=== PATIENT | female | born 1995 | race Caucasian/White ===

== ENCOUNTER 2022-12-11 18:40 | Emergency (ER) | payer SELFPAY ==
--- NOTE | 2022-12-11 18:48 | ED_ITS ---
HPI - Nausea/Vomiting/Diarrhea General Chief complaint: Nausea/Vomiting/Diarrhea Stated complaint: vomiting,etoh Related Data Allergies Allergy/AdvReac Type Severity Reaction Status Date / Time sulfamethoxazole Allergy Hives Verified 12/11/22 18:50 [From Bactrim] trimethoprim [From Bactrim] Allergy Hives Verified 12/11/22 18:50 PMFSH Social History Social History Advance Directives: No Advance Directives Information Provided: No Physical Exam Vital Signs: Vital Signs: Last Vital Signs Temp 96.9 F 12/11/22 18:51 Pulse 123 H 12/11/22 18:51 Resp 18 12/11/22 18:51 BP 106/52 L 12/11/22 18:51 Pulse Ox 98 12/11/22 18:51 O2 Del Method Room Air 12/11/22 18:51 BMI result Body Mass Index 21.3 Course Course Course Narrative: RME - 27 yo female presents to the ER for evaluation of nausea and vomiting after drinking heavy amounts of alcohol today, taking an addeerall and then doing a dab of marijuana. has not eating much today. has vomited several times in the last hour and now is just dry heaving. no blood in the vomit. arrives to triage slumped over a large vomit bucket. Plan: labs, ETOH level, utox, antiemetics, IVF Reevaluation(s) Reevaluation #1: patient eloped prior to treatment Medical Decision Making Lab Data 12/11/22 19:07 12/11/22 19:07 Labs: Lab Results 12/11/22 12/11/22 Range/Units 19:07 19:07 WBC 10.5 (4.8-10.8) X10*3/uL RBC 4.43 (4.20-5.50) X10*6/uL Hgb 13.7 (12.0-16.0) g/dl Hct 41.8 (37.0-47.0) % MCV 94.4 (80.0-98.0) fL MCH 30.9 (27.0-33.0) pg MCHC 32.8 (31.0-35.0) g/dl RDW 12.3 (11.0-16.0) % Plt Count 162 (160-400) X10*3/uL MPV 10.2 (9.4-12.3) fL Immature Gran % (Auto) 0.3 (0.0-0.4) % Neut % (Auto) 60.6 (45-73) % Lymph % (Auto) 31.9 (20-40) % [place] % (Auto) 5.6 (2-11) % Eos % (Auto) 1.0 (0-4) % Baso % (Auto) 0.6 (0-2) % Lymph # (Auto) 3.3 (1.2-4.9) X10*3/uL [place] # (Auto) 0.6 (0.1-1.2) X10*3/uL Eos # (Auto) 0.1 (0.0-0.4) X10*3/uL Baso # (Auto) 0.1 (0.0-0.2) X10*3/uL Abs Immat Gran (auto) 0.03 (0.00-0.03) X10*3/uL Absolute Neuts (auto) 6.4 (2.0-8.3) x10*3/uL Absolute Nucleated RBC 0.000 (0.0-0.012) X10*3/uL Nucleated RBC % (auto) 0.0 (0.0-0.2) /100WBC Sodium 141 (135-145) mmol/L Potassium 4.6 (3.3-5.1) mmol/L Chloride 107 (96-108) mmol/L Carbon Dioxide 21 L (22-29) mmol/L Anion Gap 18 (12-20) BUN 7 L (9-16) mg/dL Creatinine 0.78 (0.5-1.4) mg/dL Estim Creat Clear Calc 91.2 Estimated GFR > 60 Random Glucose 144 H (60-115) mg/dL Calcium 9.3 (8.4-10.2) mg/dL Magnesium 2.0 (1.6-2.6) mg/dL Total Bilirubin 0.3 (0.0-1.0) mg/dL Direct Bilirubin 0.1 (0.0-0.5) mg/dL AST 18 (5-31) U/L ALT 12 (0-31) U/L Alkaline Phosphatase 61 (39-117) U/L Total Protein 7.3 (6.5-8.0) g/dL Albumin 4.5 (3.5-5.0) g/dL Lipase 12 (8-78) U/L Ethyl Alcohol 128 mg/dL Discharge Plan Discharge Clinical Impression: Vomiting Patient Disposition: Elopement Interventions: ED Discharge Assessment Last Done: 12/11/22 23:15 Discharge Date/Time: 12/11/22 23:15
[2022-12-11 18:51] VITALS: BP 106/52; PULSE 123; RESP 18; TEMP 36.1; O2SAT 98; BMI 21.3
[2022-12-11 19:12] LABS: Basophils Absolute Auto 0.1 X10*3/uL (0.0-0.2); Basophils Percent Auto 0.6 % (0-2); Eosinophils Absolute Auto 0.1 X10*3/uL (0.0-0.4); Hematocrit 41.8 % (37.0-47.0); Hemoglobin 13.7 g/dl (12.0-16.0); Imm Gran Abs Auto 0.03 X10*3/uL (0.00-0.03); Imm Gran Pct Auto 0.3 % (0.0-0.4); Lymphocytes Absolute Auto 3.3 X10*3/uL (1.2-4.9); Lymphocytes Percent Auto 31.9 % (20-40); MANUAL DIFF FLAG NO; Mean Corpuscular HGB Conc 32.8 g/dl (31.0-35.0); Mean Corpuscular Hemoglobin 30.9 pg (27.0-33.0); Mean Corpuscular Volume 94.4 fL (80.0-98.0); Mean Platelet Volume 10.2 fL (9.4-12.3); Monocytes Absolute Auto 0.6 X10*3/uL (0.1-1.2); Monocytes Percent Auto 5.6 % (2-11); Neutrophils Absolute Auto 6.4 x10*3/uL (2.0-8.3); Neutrophils Percent Auto 60.6 % (45-73); Platelet Count 162 X10*3/uL (160-400); Red Blood Count 4.43 X10*6/uL (4.20-5.50); Red Cell Distribution Width 12.3 % (11.0-16.0); White Blood Count 10.5 X10*3/uL (4.8-10.8)
[2022-12-11 19:28] LABS: Alanine Aminotransferase 12 U/L (0-31); Albumin Level 4.5 g/dL (3.5-5.0); Alkaline Phosphatase 61 U/L (39-117); Anion Gap 18 (12-20); Aspartate Amino Transferase 18 U/L (5-31); Bilirubin Direct 0.1 mg/dL (0.0-0.5); Bilirubin Total 0.3 mg/dL (0.0-1.0); Blood Urea Nitrogen 7 mg/dL (9-16); Calcium 9.3 mg/dL (8.4-10.2); Carbon Dioxide 21 mmol/L (22-29); Chloride 107 mmol/L (96-108); Creatinine Clr Calc Pharmacy 91.2; Estimated Glomerular Filt Rate > 60; Ethanol 128 mg/dL; Glucose Random 144 mg/dL (60-115); Lipase 12 U/L (8-78); Potassium 4.6 mmol/L (3.3-5.1); Sodium 141 mmol/L (135-145); Total Protein 7.3 g/dL (6.5-8.0)
== END 2022-12-11 23:15 | disposition left against medical advice (07) ==
LOC: HO.ED 12-12 00:34
PROVIDERS: Physician Assistant; Emergency Provider Emergency Medicine
DX: R11.2 Nausea with vomiting, unspecified (principal); F10.90 Alcohol use, unspecified, uncomplicated; Y90.6 Blood alcohol level of 120-199 mg/100 ml; Z79.899 Other long term (current) drug therapy
CPT/HCPCS: 36415; 80048; 80076; 80307; 83690; 83735; 85025; 99282; 99283

== ENCOUNTER 2025-05-04 01:10 | Emergency (ER) | payer BC, SELFPAY ==
--- NOTE | ~2025-05-04 | XR_ITS ---
CLINICAL HISTORY: closed in car door 3 view left hand Comparison: None provided Findings: No fractures or dislocations. No arthritic changes. No erosions. No radiopaque foreign body. IMPRESSION: 1. 4th finger nail is partially absent. 2. Generalized soft tissue swelling. Otherwise no acute findings. This document has been electronically signed by: Quintin Gonsalez MD on 05/04/2025 02:19:32
[2025-05-04 01:12] VITALS: BP 134/87; PULSE 120; RESP 20; TEMP 36.7; O2SAT 97; BMI 33.3
--- OUTSIDE RECORDS SUMMARY | 2025-05-04 02:26 | XMS_ITS | Encounter Summary ---
Author Organization [facility] Address [address] [place] [address] [place] [phone] Phone Care Team Providers Care Nursing Assistant Name Role Phone Effie Sam MD Primary Care Provider Asia Goodman NP Primary Care Provider [phone] Pcp, Unknown Primary Care Provider Unavailabl e Encounter Details Date Type Department Care Team (Late st Contact Info) Description 12/13/2017 Procedure Pass [address] [place] [address] Social History Tobacco Use Types Packs/Day Years Used Date Smoking Tobacco: Every Day Cigarettes 1 2 Smokeless Tobacco: Never Alcohol Use Standard Drinks/Week Comments No 0 (1 standard drink = 0.6 oz pur e alcohol) Comments Unknown Sex and Gender Information Value Date Recorded Sex Assigned at Female 12/09/2017 5:00 PM EDT Legal Sex Female 8:49 PM EDT Gender Identity Female 12/09/2017 5:00 PM EDT Sexual Orientation Straight 12/16/2017 10 :31 PM EDT documented as of this encounter Last Filed Vital Signs Vital Sign Reading Time Taken Comments Blood Pressure - - Pulse - - Temperature - - Respiratory Rate - - Oxygen Saturation - - Inhaled Oxygen Concentration - - Weight 49.9 kg (110 lb) 12/13/2017 1:52 PM EDT Height 160 cm (5' 3 ) 12/13/2017 1:52 PM EDT Body Mass Index 19.49 12/13/2017 1:52 PM EDT documented in this encounter Plan of Treatment Not on file documented as of this encounter Visit Diagnoses Not on filedocumented in this encounter Additional Health Concerns Infection Onset Date Last Indicated Resolved Time CoV-Risk 10/17/2023 10/17/2023 10/28/2023 1:22 AM EDT CoV-Risk 08/13/2024 08/13/2024 08/24/2024 1:21 AM EST documented as of this encounter Care Teams Nursing Assistant Relationship Specialty Start Date End Date Effie Sam MD [address] [place] [address] PCP - General Pediatrics 12/02/17 02/28/21 Asia Goodman NP [address] [place] [id number] PCP - General Family Medicine 03/01/21 08/12/24 Pcp, Unknown PCP - General 08/13/24 documented as of this encounter Additional Source Comments The information contained in this document represents components of the legal health record. It is not the complete legal health record.[facility]
--- OUTSIDE RECORDS SUMMARY | 2025-05-04 02:26 | XMS_ITS | Encounter Summary ---
Author Organization [facility] Address [address] [place] [address] [place] [phone] Phone Care Team Providers Care Bootmaker Hand Name Role Phone Cesar Hunt MD Primary Care Provider [phone] Effie Sam MD Primary Care Provider Asia Goodman NP Primary Care Provider [phone]- [phone] Pcp, Unknown Primary Care Provider Unavailabl e Encounter Details Date Type Department Care Team (Late st Contact Info) Description 08/18/2017 Ancillary Orders [facility], X-Ray - [address] [place] [address] Tierra Milner MD [address] [place] [address], [facility] [address] [place] [address] [email or web address] Cough Social History Tobacco Use Types Packs/Day Years Used Date Smoking Tobacco: Never Assessed Comments Unknown Sex and Gender Information Value Date Recorded Sex Assigned at Female 12/09/2017 5:00 PM EDT Legal Sex Female 8:49 PM EDT Gender Identity Female 12/09/2017 5:00 PM EDT Sexual Orientation Straight 12/16/2017 10 :31 PM EDT documented as of this encounter Plan of Treatment Not on file documented as of this encounter Results * XR CHEST PA AND LATERAL 2 VIEWS (08/18/2017 11:30 AM EST) Anatomical Region Laterality Modality Chest Radiographic Radha ging 08/18/2017 11:3 6 AM EST Impressions 08/18/2017 11:38 AM EST No acute chest disease. POS - [id number] Narrative 08/18/2017 11:38 AM EST HISTORY: As above. COMPARISON: None. CHEST RADIOGRAPH FINDINGS: 2 views obtained. Heart and mediastinum are normal. Lungs are clear. Mild thoracic scoliosis. No acute soft tissue or bony findings. Procedure Note Greg Hess MD - 08/18/2017 HISTORY: As above. COMPARISON: None. CHEST RADIOGRAPH FINDINGS: 2 views obtained. Heart and mediastinum are normal. Lungs are clear.Mild thoracic scoliosis. No acute soft tissue or bony findings. IMPRESSION: No acute chest disease. POS - [id number] Tierra Milner MD IMG XR CHEST Final Result documented in this encounter Visit Diagnoses Diagnosis Cough Cough documented in this encounter Additional Health Concerns Infection Onset Date Last Indicated Resolved Time CoV-Risk 10/17/2023 10/17/2023 10/28/2023 1:22 AM EDT CoV-Risk 08/13/2024 08/13/2024 08/24/2024 1:21 AM EST documented as of this encounter Care Teams Bootmaker Hand Relationship Specialty Start Date End Date Cesar Hunt MD [address] [place] [address], [facility] [address] [place] [address] [email or web address] PCP - General Pediatrics 08/15/17 12/01/17 Effie Sam MD [address] [place] [id number] PCP - General Pediatrics 12/02/17 02/28/21 Asia Goodman NP [address] [place] [id number] PCP - General Family Medicine 03/01/21 08/12/24 Pcp, Unknown PCP - General 08/13/24 documented as of this encounter Additional Source Comments The information contained in this document represents components of the legal health record. It is not the complete legal health record.[facility]
--- OUTSIDE RECORDS SUMMARY | 2025-05-04 02:26 | XMS_ITS | Data Portability ---
Author Organization [place] - [facility] Address [address] [place] [address] Assessment No assessment recorded. Plan of Treatment Reminders Order Date Submit Date Provider Last Modified By Organization Details Last Modified Time Details Appointments None recorded. Lab SARS CoV 2 RNA (COVID-19 ), QL, medical coding technician-PCR, respirato ry specimen 2022 023 [facility] (Outpatient Registration) , [address] [place], [address], 3 10:52:05 SARS CoV 2 RNA (COVID-19 ), QL, medical coding technician-PCR, respirato ry specimen 2021 022 [facility], [address] [place], [address], 2 10:40:41 culture, throat 2019 020 [facility], [address] [place], [address], 0 10:46:26 rapid strep group A, throat 2019 020 [email or web address] [facility], [address] [place], [address], 0 11:12:34 Referral None recorded. Procedures pulse oximetry (PROC) 2019 020 [facility], [address] [facility], [address], 0 09:14:48 pulse oximetry (PROC) 2019 020 GREY [facility], [address], [place] [facility] [place], [address], 0 09:14:34 Surgeries None recorded. Imaging None recorded. Medication Orders amoxicill in 875 mg-potass ium clavulana te 125 mg tablet 2021 023 [facility], [address] [place], [address], 3 10:26:26 guaifenes in ER 600 mg tablet, extended release 12 hr [address] [facility], [address] [place], [address], 2 10:36:49 Patient TargetsNo targets recorded. Patient Instructions Encounter Date Encounter Id Patient Instructions Last Modified By Organization Details Last Modified Time 09/18/2019 [id number] sore throat: car e instructions [email or web address] Not available 09/18/2019 10:46:26 09/29/2022 [id number] You have had an Urgent Care Visit which is designed to address acute issues. It does not represent an exhaustive evaluation of your symptom complex, but is an attempt to treat and manage the most likely cause of your most pressing physical issues. If you are not improved in the time frame that we have discussed, please seek the advice of your PCP who is in a position to order further diagnostic testing and possible specialist consultation. If you are rapidly deteriorating despite the treatment recommendations please do not wait to see your PCP and do proceed to the closest ER where a comprehensive evaluation including consideration to lab and other diagnostic testing as well as consultation is more expeditiously accessible. If you were prescribed medications they have been directly submitted to your pharmacy on file. Please make sure you finish all your medications and if you develop major side effects related to them please do stop taking them and check with your PCP to see if you need to get an alternative medication. If labs or xray were ordered, we will call you with the results if there is any change to your plan of care. You have had an Urgent Care Visit which is designed to address acute issues. It does not represent an exhaustive evaluation of your symptom complex, but is an attempt to treat and manage the most likely cause of your most pressing physical issues. [email or web address] Not available 09/29/2022 10:43:04 Reason for Referral None Reported. Results Created Date Observation Date Name Description Value Unit Range Abnormal Flag Note LastModifiedBy Organization Detail LastModifiedTime 09/18/1909/18/2019 rapid strep group A, throa t Result negati ve Not Available [facility] [address] [place], [address], 09/18/2019 10:42:56 09/18/1909/18/2019 rapid strep group A, throa t Internal Control Valid Not Available [facility] [address] [place], [address], 09/18/2019 10:42:56 09/18/19 20 09/21/2019 cultu re, throa t throat culture susceptib le MANY STAPH YLOCO CCUS AUREU S WITH RARE SAGE L THROA T KASSANDRA ORGAN ISM 1: STAPH YLOCO CCUS AUREU S STAPH YLOCO CCUS AUREU S: REACT ION CIPRO FLOXA BRIDGET <=0.5 S CLIND AMYCI N <=0.2 5 S ERYTH ROMYC IN <=0.2 5 S GENTA MICIN <=0.5 S LEVOF LOXAC IN 0.25 S LINEZ OLID (ZYVO X) 2 S MOXIF LOXAC IN <=0.2 5 S OXACI LLIN 0.5 S Not Available [facility] [address] [place], [address], 09/21/2019 08:08:52 09/18/19 20 09/21/2019 cultu re, throa t throat culture PENICI LLIN >=0.5 R resistant Not Available [facility] [address] [place], [address], 09/21/2019 08:08:52 09/18/19 20 09/21/2019 cultu re, throa t throat culture susceptib le QUINU PRIST IN/DA LFO (SYNE RCID) <=0.2 5 S RIFAM PICIN <=0.5 S TETRA CYCLI NE <=1 S TIGEC YCLIN E <=0.1 2 S TRIME THOPR IM/PACHECO LFAME THOXA ZOLE <=10 S VANCO MYCIN 1 S Not Available [facility] [address] [facility], [place], [place], [address], 09/21/2019 08:08:52 10/27/1910/27/2021 SARS- COV-2 (NAAT ) sars-cov-2 NOT DETECT ED not detect . The Aptim a SARS- CoV-2 assay is a nucle ic acid ampli ficat ion in vitro diagn ostic test inten ded for the quali tativ e detec tion of RNA from SARS- CoV-2 using Trans cript ion Media israel Ampli ficat ion (TMA) isola israel and purif ied from nasop haryn geal (ORTHODONTIC BAND MAKER), nasal , mid-t urbin ate, and oroph aryng eal (OP) swab speci mens obtai alessandra from indiv idual s meeti ng COVID -19 clini padma and/o r epide miolo gical crite gema. The Aptim a TMA metho d is equiv alent in sensi tivit y and speci ficit y to metho ds utili zing PCR and RT-PC R. Resul ts are for the ident ifica tion of SARS- CoV-2 RNA which is gener ally detec table in upper respi rator y sampl es durin g the acute phase of infec tion. Posit iram resul ts are indic ative of the prese nce of SARS- CoV-2 RNA; clini padma corre latio n with patie nt histo ry and other diagn ostic infor matio n is neces mitzy to deter mine patie nt infec tion statu s. Posit iram resul ts do not rule out bacte rial infec tion or co-in fecti on with other virus es. Negat iram resul ts do not precl ude SARS- CoV-2 infec tion and shoul d not be used as the sole basis for patie nt manag ement decis ions. Negat iram resul ts must be combi alessandra with clini padma obser vatio ns, patie nt histo ry, and epide miolo gical infor matio n. The Aptim a SARS- CoV-2 assay is only for use under the Food and Drug Admin istra tion' s Emerg ency Use Autho rizat ion (EUA) . Not Available [facility] [address] [place], [address] 10/27/2021 02:05:58 08/25/1908/26/2022 SARS- COV-2 (NAAT ) sars-cov-2 NOT DETECT ED not detect . The Aptim a SARS- CoV-2 assay is a nucle ic acid ampli ficat ion in vitro diagn ostic test inten ded for the quali tativ e detec tion of RNA from SARS- CoV-2 using Trans cript ion Media israel Ampli ficat ion (TMA) isola israel and purif ied from nasop haryn geal (ORTHODONTIC BAND MAKER), nasal , mid-t urbin ate, and oroph aryng eal (OP) swab speci mens obtai alessandra from indiv idual s meeti ng COVID -19 clini padma and/o r epide miolo gical crite gema. The Aptim a TMA metho d is equiv alent in sensi tivit y and speci ficit y to metho ds utili zing PCR and RT-PC R. Resul ts are for the ident ifica tion of SARS- CoV-2 RNA which is gener ally detec table in upper respi rator y sampl es durin g the acute phase of infec tion. Posit iram resul ts are indic ative of the prese nce of SARS- CoV-2 RNA; clini padma corre latio n with patie nt histo ry and other diagn ostic infor matio n is neces mitzy to deter mine patie nt infec tion statu s. Posit iram resul ts do not rule out bacte rial infec tion or co-in fecti on with other virus es. Negat iram resul ts do not precl ude SARS- CoV-2 infec tion and shoul d not be used as the sole basis for patie nt manag ement decis ions. Negat iram resul ts must be combi alessandra with clini padma obser vatio ns, patie nt histo ry, and epide miolo gical infor matchrista n. The Aptim a SARS- CoV-2 assay is only for use under the Food and Drug Admin istra tion' s Emerg ency Use Autho rizat ion (EUA) . Not Available [facility] [address] [place], [address] 08/26/2022 10:52:05 Result Notes None recorded. Medical Equipment None Reported. Allergies Allergen ID Allergen Name Allergen Category Reaction Reaction Severity Criticality Documentation Date Start Date Code Code System Note Provider Name and Address Organization Details Recorded Time 383776 Bactrim medicatio n hives vomiting Not available Not available Not available 06/06/2019 39885 9 RxNorm [place] Trotter [facility] 3 10:26:12 Medications Name Sig Start Date Stop Date Status Note LastModified by Organization Details LastModified Time amoxicillin 875 mg-potassium clavulanate 125 mg tablet Take 1 tablet every 12 hours by oral route. 08/25 completed Not Available Not Available Not Available guaifenesin ER 600 mg tablet, extended release 12 hr Take 1 tablet every 12 hours by oral route for 5 days. 10/26 completed Not Available Not Available Not Available Vitals Date Recorded Body height Body mass index (BMI) Body weight Body temperature Oxygen saturation Oxygen saturation in Arterial blood by Pulse oximetry Heart rate Systolic And Diastolic Provider Name and Address Organization Details Last Updated DateTime 3 160.02 cm 23.4 kg/m2 62160.2 9 g 97.7 [degF] 96 % 96 % 113 /min 108/64 mm[Hg] Jennifer Rao MA [facility] 3 10:27:45 Date Recorded Body temperature Heart rate Oxygen saturation Oxygen saturation in Arterial blood by Pulse oximetry Systolic And Diastolic Provider Name and Address Organization Details Last Updated DateTime 0 98.8 [degF] 106 /min 99 % 99 % 124/70 mm[Hg] [facility] 08:56[facility]39 Date Recorded Body temperature Heart rate Oxygen saturation Oxygen saturation in Arterial blood by Pulse oximetry Systolic And Diastolic Provider Name and Address Organization Details Last Updated DateTime 0 98.1 [degF] 97 /min 99 % 99 % 118/64 mm[Hg] [facility] 0 10:11:00 Date Recorded Body height Body temperature Heart rate Oxygen saturation Oxygen saturation in Arterial blood by Pulse oximetry Systolic And Diastolic Provider Name and Address Organization Details Last Updated DateTime 3 160.02 cm 98.3 [degF] 119 /min 98 % 98 % 106/64 mm[Hg] Coleen Asif [facility] 3 10:23:40 Date Recorded Body temperature Oxygen saturation Oxygen saturation in Arterial blood by Pulse oximetry Heart rate Systolic And Diastolic Provider Name and Address Organization Details Last Updated DateTime 2 96.9 [degF] 95 % 95 % 102 /min 112/70 mm[Hg] Deirdre Mcfadden [facility] 2 10:18:22 Social History None recorded. Functional Status None recorded. Mental Status None recorded. Family History Nothing Reported. Medical History No medical history recorded. Gynecological HistoryNo gynecological history recorded. Obstetrics History GPAL:G 0 P 0 0 0 0 Past Encounters Encounter ID Performer Location Encounter Start Date Encounter Closed Date Diagnosis/Indication Diagnosis SNOMED-CT Code Diagnosis ICD10 Code Diagnosis IMO Codes Diagnosis Note [id number] [facility] [address] [address] 06/06/2019 11:03:47 06/06/2019 13:22:41 Serous otitis media 32997815 H65.93 Acute uppe r respiratory infection 47554148 J06.9 [id number] GIOVANY GALDAMEZ [facility] [address] [address] 09/13/2019 08:52:16 09/13/2019 09:10:26 Acute upper respiratory infection 18566111 J06.9 Acute URI, most likely viral etiology. Advise rest, fluids, and APAP/NSAID s for pain and fever. Treating symptomati beckie as below. F/u with PCP in 5-7 days if symptoms persist or sooner if new or worsening symptoms develop. Cough 92765649 R05 LS clear, decreases concern for pneumonia. Likely caused by post nasal drip. Will give benzonatat e as below for cough. Advised not to drive or operate machinery prior to taking first dose as may cause sedation. Also reviewed flonase and nasal saline rinse for the patient's symptoms. Has a sore throat 483368 002 J02.9 Suspect sore throat due to PND secondary to URI. Rapid strep negative in office today. Reviewed supportive measures: nasal saline rinse, salt water gargles, good oral hygiene, avoiding irritating foods/drin ks and recommendi ng soothing foods/drin ks. Advised to f/u with PCP in 3-5 days if not better or sooner if worsening. May go to ER if develops bloody sputum, dyspnea, high fever refractory to treatment, or if concerned. [id number] Jacqui Washington NP [facility] [address] [address] 09/18/2019 09:56:13 09/18/2019 10:50:33 Acute pharyngitis 976618079 J02.9 Rapid strep negative. Will send culture. No antibiotic s warranted at this time. Continue conservati ve measures to include throat lozenges/s pray, tylenol/ib uprofen as needed for pain/disco mfort, increased fluids to include warm beverages, tea with honey, ice chips, popsicles. Avoid acidic foods and carbonated beverages. Acute uppe r respiratory infection 70406067 J06.9 [id number] JN WYNNE [facility] [address] [address] 10/26/2021 10:02:38 10/26/2021 10:37:42 Acute left otitis media 619090523 H66.92 26 y/o afebrile, non toxic female here for evaluation of congestion , ear pain x 2-3 daysVSS. Exam with left sided otitis mediaRx augmentin. Please take complete course of antibiotic as written. Recommend use of probiotics while on antibiotic s.Recommen d OTC symptomati c care. Supportive care- salt water gargles, honey, humidified air, nasal saline irrigation . Consider OTC antihistam ine treatmentf /u prnEmergen t s/sx and appropriat e f/u reviewed Patient vocalizes understand ing and is in agreement with discussed plan of care You have had an Urgent Care Visit which is designed to address acute issues. It does not represent an exhaustive evaluation of your symptom complex, but is an attempt to treat and manage the most likely cause of your most pressing physical issues. If you are not improved in the time frame that we have discussed, please seek the advice of your PCP who is in a position to order further diagnostic testing and possible specialist consultati on. If your condition is worsening despite the treatment recommenda tions please do not wait to see your PCP and do proceed to the closest ER where a comprehens iram evaluation including considerat ion to lab and other diagnostic testing as well as consultati on is more expeditiou sly accessible . If you were prescribed medication s they have been directly submitted to your pharmacy on file. Please make sure you finish all your medication s and if you develop major side effects related to them please do stop taking them and check with your PCP to see if you need to get an alternativ e medication . if you had any laboratory testing or XRAYs done at today's visit, please make sure you obtain your results from us tomorrow or the time frame discussed at your visit, you may also follow up with your PCP for test results. [id number] JN Oconnor [facility] [address] [address] 08/25/2022 10:14:08 08/25/2022 11:20:06 Viral syndrome 482352730 B34.9 -Most likely viral. Push fluids and rest. Okay for otc supportive care. Covid test performed. [id number] Essence Bautista [facility] [address] [address] 09/29/2022 10:16:37 09/29/2022 10:45:34 Glossitis 54005450 K14.0 - unclear etiology- ? reaction to new drink- recommend stop harsh rinses such as listerine, use gentle warm salt water gargles, bland foots- can try antihistam ine orally- discussed that symptoms should likely resolve with time- f/u with pcp if not improving/ worsening Health Concerns Section Related Observation LastModified by Organization Detai ls LastModified Time None Recorded Concern Status LastModified by Organization Details LastModified Time None Recorded Advance Directives Directive None Recorded Payers Insurance Date Sequence Insurance Name Policy Number Policy Holcomb Covered Member ID Holcomb Member ID Guarantor Name 08/25/2022 1 [employer]) [id number] Isis Frederic [id number] Isis Frederic 09/29/2022 1 [employer]) [id number] [employer]is [employer] [id number] Isis Frederic 08/25/[address] [facility] [id number] Isis Frederic [id number] [employer] Notes Date Note Type Note Provider Name and Address Organization Details Recorded Time 0 text/html 23 year old female presents with a cough and sore throat 4 days ago developed sore throat, then developed cough 2 days later. also c/o intermittent stuffy/runny nose, green-yellow nasal disgage cough is dry ,intermittent productive same. no fevers. has taken nyquil to good effect. Was also using OTC allergy nasal spray. Sissy Hensley MD [address] [place], [address], [facility] 09/14/2019 08:52:16 0 text/html 23 year old female presents with a sore throat and swollen glands pt seen on 09/12 for c/o cough and sore throat strep test not done as exam not concerning for strep, thought to be r/t pnd returns today with continued sore throat, swollen glands also with cough productive of clear phlegm, runny nose, bilat ear pain/pressure (R >L) denies fever, no chills Sissy Hensley MD [address] [place], [place] [address], [address], [facility] 09/18/2019 15:17:39 2 text/html Upper Respiratory SymptomsReported by Patientupper respiratory symptomsFor quality, patient reportscongested(worse on the left side). For associated symptoms, patient reportsfatigueandsore throatbut reportsno fever,no sputum production,no shortness of breath,no wheezing,no vomiting,no diarrhea, andno nausea(ear pain). For location, patient reportshead. For severity, patient reportsmoderate. For context, patient reportsno sick contacts,no foreign travel, andsmoker (1/2- 1 ppd smoker). For modifying factors, patient reportsotc medication(no otc treatments attempted). For duration, (x3 days).No known hx of seasonal allergies.ROS as noted in the HPI pt presents today with ear pain, sore throat and congestion. Pt symptoms started about three days ago. Sissy Hensley MD [address] [place], [address], [facility] 10/26/2021 20:35:41 3 text/html ROS as noted in the HPI 2 days of symptoms. Cough and congestion, headaches and sore throat. Not taking anything. No vomiting or diarrhea. Sissy Hensley MD [address] [place] [address], [address], [facility] 08/27/2022 08:46:41 3 text/html ROS as noted in the HPI 26 year old female presents with sores in her mouth -LG patient presents with sore in mouth - started 2- 3 days ago - states tongue feels burnt . States that the gunk has been building up on the tongue, state its bleeding with brushing. States the tongue has a bunch of bumps . Not painful but slightly irritated. States she did have a new drink at work (vitamin water). Treatments attempted: listerine. No recent antibiotics recently. Sissy Hensley MD [address] [place], [address], [facility] 09/30/2022 06:25:02 OBGyn Episode No OBEpisode recorded.
--- OUTSIDE RECORDS SUMMARY | 2025-05-04 02:26 | XMS_ITS | Encounter Summary ---
Author Organization [facility] Address [address] [place] [address] [place] [address] Phone Care Team Providers Care Rand Cementer Name Role Phone Effie Sam MD Primary Care Provider [phone] Asia Goodman NP Primary Care Provider [phone] Pcp, Unknown Primary Care Provider Unavailabl e Encounter Details Date Type Department Care Team (Late st Contact Info) Description 01/19/2018 Ancillary Orders [facility] [address] [place] [address] Kassidy Reaves MD [address] [place] [address] Orthopedics & Sports Medicine, [facility] [place] [address] [email or web address] Social History Tobacco Use Types Packs/Day Years [...] documented as of this encounter Care Teams Rand Cementer Relationship Specialty Start Date End Date Effie Sam MD [address] [place] [address] PCP - General Pediatrics 12/02/17 02/28/21 Asia Goodman NP [address] [place] [address] PCP - General Family Medicine 03/01/21 08/12/24 Pcp, Unknown PCP - General 08/13/24 documented as of this encounter Additional Source Comments The information contained in this document represents components of the legal health record. It is not the complete legal health record.[facility]
--- OUTSIDE RECORDS SUMMARY | 2025-05-04 02:26 | XMS_ITS | Encounter Summary ---
Author Organization [facility] Address [address] [place] [address] [place] [address] Phone Care Team Providers Care Flash Welding Machine Operator Name Role Phone Effie Sam MD Primary Care Provider Asia Goodman NP Primary Care Provider [phone] Pcp, Unknown Primary Care Provider Unavailabl e Encounter Details Date Type Department Care Team (Late st Contact Info) Description 01/19/2018 [facility] Orders [facility] [address] [phone] Kassidy Reaves MD [address] [place] [address] [facility] [place] [address] [email or web address] Low back pain, unspecified back pain laterality, unspecified chronicity, with sciatica presence unspecified Social History Tobacco Use Types Packs/Day Years [...] as of this encounter Results * XR LUMBOSACRAL SPINE 2-3 VIEWS (01/19/2018 9:40 AM EDT) Narrative Martine Cisneros Y - 01/19/2018 9:40 AM EDT This image report has been auto-finalized and has not been read by a Radiologist. Interpretation has been included in the provider encounter note for this date of service. us Kassidy Reaves MD IMG XR SPINE Final Res ult documented in this encounter Visit Diagnoses Diagnosis Low back pain, unspecified back pain laterality, unspecified chronicity, with sciatica presence unspecified Low back pain, unspecified back pain laterality, unspecified chronicity, with sciatica presence unspecified documented in this encounter Additional Health Concerns Infection Onset Date Last Indicated Resolved Time CoV-Risk 10/17/2023 10/17/2023 10/28/2023 1:22 AM EDT CoV-Risk 08/13/2024 08/13/2024 08/24/2024 1:21 AM EST documented as of this encounter Care Teams Flash Welding Machine Operator Relationship Specialty Start Date End Date Effie Sam MD [address] [place] [address] PCP - General Pediatrics 12/02/17 02/28/21 Asia Goodman NP [address] [place] [address] PCP - General Family Medicine 03/01/21 08/12/24 Pcp, Unknown PCP - General 08/13/24 documented as of this encounter Additional Source Comments The information contained in this document represents components of the legal health record. It is not the complete legal health record.[facility]
--- OUTSIDE RECORDS SUMMARY | 2025-05-04 02:26 | XMS_ITS | Clinical Summary ---
Author Organization [facility] Address [address] [place] [address] Phone Care Team Providers Care Energy Administrator Name Role Phone Pcp, Unknown Primary Care Provider Unavailabl e Allergies Active Allergy Reactions Criticality Noted Date Comments Sulfamethoxazole-Trimethopr im Hives,Nausea And Vomiting 12/09/2017 Medications No known medications Active Problems Problem Noted Date Diagnosed Date S/P laparoscopic cholecystectomy 12/28/2024 Anxiety 12/28/2024 History of maternal pyelonephritis 12/28/2024 History of substance abuse 12/28/2024 Major depression, recurrent, chronic 12/28/2024 Recurrent urinary tract infection 12/28/2024 Shoulder pain 12/28/2024 Tobacco use disorder 12/28/2024 Right lumbar radiculitis 01/25/2018 Pyelonephritis 12/16/2017 Overview (12/28/2024): Seen at [facility] ED. Injury of right knee 12/13/2017 Overview (12/28/2024): Acute medial meniscus tear versus patellar dislocation, right knee Lactose intolerance 02/19/2016 Acne vulgaris 03/28/2015 Dysmenorrhea 03/28/2015 Resolved Problems Problem Noted Date Diagnosed Date Resolved Date Biliary colic 12/04/2024 12/28/2024 Assessment & Plan (12/13/2024 2:45 AM EDT): 29-year-old female who is 4 months presenting with recurrent biliary colic scheduled to have a laparoscopic cholecystectomy later this morning. Fortunately labs and exam are overall reassuring. There is no signs of cholangitis or need for ERCP. Patient was offered admission versus discharge home and returning for her elective cholecystectomy. Patient requests to be discharged and will return later this morning. Calculus of gallbladder and bile duct without cholecystitis or obstruction 12/04/2024 12/28/2024 Assessment & Plan (12/04/2024 11:37 AM EDT): This is a 29-year-old woman who is 4 months and having more regular episodes of biliary colic secondary to cholelithiasis documented by ultrasound outside hospital. I have discussed laparoscopic cholecystectomy in detail including risk benefits and alternatives with the patient and she agrees to proceed. She was told to avoid all heavy lifting greater than 5 to 10 pounds for the first 2 weeks after surgery greater than 15 pounds for another 2 weeks a 4 weeks of lifting restrictions. I answered all the patient's questions to her satisfaction. We will schedule this procedure for sometime in in the near future Right knee pain 12/27/2017 12/28/2024 Immunizations Immunization Administration Dates Next Due DTaP 02/28/2003, 9,04/07/1998,02/10,1997 HPV,quadrivalent 10/18/2013,05/01/2013, 3 Hepatitis B, unspecified formulation 07/11/1998, 1997,1997 Hib, unspecified formulation 01/08/1999, 04/07/1998,02/10/1998,11/27 IPV 02/28/2003,02/10/1998,1997 Influenza Recombinant Bud valent Preservative Free IM 06/22/2019 Influenza, Unspecified Formulation 05/05/2020, MMR 02/28/2003,01/08/1999 Meningococcal MCV4, unspecif ied Formulation 04/07/2009 RSV Vaccine, Unspecified 07/16/2024 Td, unspecified formulation 12/30/2015 Tdap 07/16/2024,07/29/2022,04/07/2009 Varicella 04/09/2008,1998 Family History Medical History Relation Comments No Known Problems Brother Heart attack Father Colon cancer Maternal Aunt No Known Problems Maternal Grandfather No Known Problems Maternal Grandmother Colon cancer Maternal Uncle No Known Problems Mother No Known Problems Paternal Aunt No Known Problems Paternal Grandfather Heart disease Paternal Grandmother No Known Problems Paternal Uncle No Known Problems Sister No Known Problems Unspecified Cancer Neg Hx Clotting disorder Neg Hx Collagen disease Neg Hx Depression Neg Hx Diabetes Neg Hx Dislocations Neg Hx Gout Neg Hx Infl. arthritis Neg Hx Osteoporosis Neg Hx Scoliosis Neg Hx Relation Status Comments Brother Alive Father Maternal Aunt Maternal Grandfather Maternal Grandmother Maternal Uncle Alive Mother Alive Paternal Aunt Paternal Grandfather Paternal Grandmother Paternal Uncle Sister Unspecified Social History Tobacco Use Types Packs/Day Years Used Date Smoking Tobacco: Former Cigarettes 1 2 Smokeless Tobacco: Never Tobacco Cessation:Counseling Given: Not Answered Comments:Quit 2022 Alcohol Use Standard Drinks/Week Comments Yes 1 (1 standard drink = 0.6 oz pur e alcohol) Education Answer Date Recorded Are you interested in more education? Not on winifred e 10/29/2022 Are you concerned about learning? Not on file 10/29/2022 No 10/29/2022 No 10/29/2022 Food Answer Date Recorded Within the past 6 months we worried whether our food would run out before we got money to buy more. Never True 12/13/2024 Within the past 6 months the food we bought just didn't last and we didn't have enough money to get more. Never True Residential Stability Answer Date Recor ded What is your housing situation today? I have pawan calero 12/13/2024 How many times have you move d in the past 12 months? Zero (I did not move) 12/13/2024 Paying for Meds Answer Date Recorded Do you have trouble paying for medicines? No 12/13/2024 Paying Utility Bills Answer Date Record ed Do you have trouble paying your heating or elect ricity bill? No 12/13/2024 Transportation Answer Date Recorded Has the lack of transportati on kept you from medical appointments or from getting medications? No 12/13/2024 Digital Access Answer Date Recorded No 12/13/2024 Yes 12/13/2024 Do you have reliable internet access at home? Ye s 12/13/2024 Do you have a device (e.g., phone, tablet, computer) with a working camera? Yes 12/13/2024 Intimate Partner Violence Answer Date R ecorded Are you denied basic needs s uch as food, clothing, or medical care? No 12/13/2024 In the past 12 months have y ou been in a relationship with a person who hurts, threatens, or tries to control you? No 12/13/2024 Are you denied basic needs s uch as food, clothing, or medical care? No 12/13/2024 In the past 12 months have y ou been in a relationship with a person who hurts, threatens, or tries to control you? No 12/13/2024 Comments No Sex and Gender Information Value Date Recorded Sex Assigned at Female 12/09/2017 5:00 PM EDT Legal Sex Female 8:49 PM EDT Gender Identity Female 12/09/2017 5:00 PM EDT Sexual Orientation Straight 12/16/2017 10 :31 PM EDT Occupation Industry Job Start Date Job End Date [employer] Not on file Not on file Not on file Last Filed Vital Signs Vital Sign Reading Time Taken Comments Blood Pressure 121/71 12/13/2024 2:00 PM EDT Pulse 77 12/28/2024 10:21 AM EDT Temperature 36.6 C (97.8 F) 12/28/2024 10:21 AM EDT Respiratory Rate 20 12/13/2024 1:15 PM EDT Oxygen Saturation 93% 12/28/2024 10:21 AM EDT Inhaled Oxygen Concentration - - Weight 80.3 kg (177 lb) 12/13/2024 12:01 AM EDT Height 160 cm (5' 3 ) 12/13/2024 12:01 AM EDT Body Mass Index 31.35 12/13/2024 12:01 AM EDT Plan of Treatment Health Maintenance Due Date Last Done Comments DEPRESSION SCREENING 2009 SMOKING Hx and SMOKELESS TOBACCO SCREENING 2010 HEPATITIS C SCREENING 10/10/2015 HIV ONE-TIME SCREENING (18-65 YEARS) 10/10/2015 PAP SMEAR 2018 INFLUENZA VACCINE (#1) 2025 , 05/05/2020, 06/22/2019 COVID-19 VACCINE ( season) 2025 Adult Td,Tdap Booster 07/16/2034 07/16/2024 , 07/29/2022, 12/30/2015, Additional history exists HIB VACCINES Completed 01/08/1999, 11/1997, 02/10/1998, Additional history exists MENINGOCOCCAL VACCINES (ACWY) Aged Out 04/07/2009 No longer eligible based on patient's age to complete this topic HEPATITIS A VACCINES Aged Out No long er eligible based on patient's age to complete this topic MENINGOCOCCAL VACCINES (B) Aged Out N o longer eligible based on patient's age to complete this topic PNEUMOCOCCAL VACCINES (0-49 years) Aged Out No longer eligible based on patient's age to complete this topic Medical Devices Not on file Insurance BLUE CROSS OUT OF STATE PPO BLUE VANLUE OUT OF STATE PPO [place] OUT OF STATE [place] [address] [place] [address] OUT OF STATE PPO Advance Directives For more information, please contact: [phone] (9AM - 5PM Brianda/[facility], Tuesday-Tuesday) * Full Code (Latest Code Status on File) Date Activated Date Inactivated Comments 12/13/2024 9:00 AM Question Answer Comments Code Status Confirmed With: Patient Care Teams Energy Administrator Relationship Specialty Start Date End Date Pcp, Unknown PCP - General 08/13/24 Additional Source Comments The information contained in this document represents components of the legal health record. It is not the complete legal health record.[facility]
--- OUTSIDE RECORDS SUMMARY | 2025-05-04 02:26 | XMS_ITS | Encounter Summary ---
Author Organization [facility] Address [address] [place] [address] [place] [address] Phone Care Team Providers Care Manufacturing Manager Name Role Phone Effie Sam MD Primary Care Provider [phone] Asia Goodman HELP DESK SUPERVISOR Primary Care Provider [phone] Pcp, Unknown Primary Care Provider Unavailabl e Encounter Details Date Type Department Care Team (Late st Contact Info) Description 12/02/2017 Ancillary Orders [facility], X-Ray - [address] [place] [address] Molly Benitez, [facility] [address] [facility], [facility] [address] [place] [address] [email or web address] Acute pain of right knee Social History Tobacco Use Types Packs/Day Years [...] as of this encounter Results * XR KNEE 4 OR MORE VIEWS (RIGHT) (12/02/2017 10:57 AM EDT) Anatomical Region Laterality Modality Knee Right Radiographic Radha ging 12/02/2017 1:37 PM EDT Impressions 12/02/2017 1:37 PM EDT No bony abnormality. POS - [id number] Narrative 12/02/2017 1:37 PM EDT EXAM: XR KNEE 4 OR MORE VIEWS (RIGHT) COMPARISON: None FINDINGS: No fracture, dislocation or other bone or joint abnormality is seen. No suprapatellar joint effusion. The soft tissues are normal. Procedure Note Mayra Goss MD - 12/02/2017 EXAM: XR KNEE 4 OR MORE VIEWS (RIGHT) COMPARISON: None FINDINGS: No fracture, dislocation or other bone or joint abnormality is seen. Nosuprapatellar joint effusion. The soft tissues are normal. IMPRESSION: No bony abnormality. POS - [id number] Molly Benitez REINFORCED STEEL PLACING SUPERVISOR IMG XR LOW ER EXTREMITY Final Result documented in this encounter Visit Diagnoses Diagnosis Acute pain of right knee Acute pain of right knee documented in this encounter Additional Health Concerns Infection Onset Date Last Indicated Resolved Time CoV-Risk 10/17/2023 10/17/2023 10/28/2023 1:22 AM EDT CoV-Risk 08/13/2024 08/13/2024 08/24/2024 1:21 AM EST documented as of this encounter Care Teams Manufacturing Manager Relationship Specialty Start Date End Date Effie Sam MD [address] [place] [address] PCP - General Pediatrics 12/02/17 02/28/21 Asia Goodman NP [address] [place] [address] PCP - General Family Medicine 03/01/21 08/12/24 Pcp, Unknown PCP - General 08/13/24 documented as of this encounter Additional Source Comments The information contained in this document represents components of the legal health record. It is not the complete legal health record.[facility]
--- OUTSIDE RECORDS SUMMARY | 2025-05-04 02:26 | XMS_ITS | Encounter Summary ---
Author Organization [facility] Address [address] [place] [address] [place] [address] Phone Care Team Providers Care Community Liaison Name Role Phone Cesar Hunt MD Primary Care Provider Effie Sam MD Primary Care Provider [phone] Asia Goodman NP Primary Care Provider [phone] Pcp, Unknown Primary Care Provider Unavailabl e Encounter Details Date Type Department Care Team (Late st Contact Info) Description 08/15/2017 Ancillary Orders [facility], X-Ray - [address] [place] [address] Cesar Hunt MD [address] [place] [address], [facility] [address] [place] [address] [email or web address] Pain of finger of right hand Social History Tobacco Use Types Packs/Day Years [...] as of this encounter Results * XR FINGER 3RD DIGIT (RIGHT) (08/15/2017 5:27 PM EST) Anatomical Region Laterality Modality Hand Right Radiographic Radha ging 08/15/2017 6:25 PM EST Impressions 08/15/2017 6:26 PM EST No bony injury is evident POS [id number] Narrative 08/15/2017 6:26 PM EST Three views. No comparison No fracture or dislocation. No opaque foreign bodies. No arthritic changes or other underlying bony abnormality. Procedure Note Charles Scott MD - 08/15/2017 Three views. No comparison No fracture or dislocation. No opaque foreign bodies. No arthritic changes or other underlying bony abnormality. IMPRESSION: No bony injury is evident POS [id number] Cesar Hunt MD IMG XR UPPER EXTREMITY Luci l Result documented in this encounter Visit Diagnoses Diagnosis Pain of finger of right hand Pain of finger of right hand documented in this encounter Additional Health Concerns Infection Onset Date Last Indicated Resolved Time CoV-Risk 10/17/2023 10/17/2023 10/28/2023 1:2 2 AM EDT CoV-Risk 08/13/2024 08/13/2024 08/24/2024 1:21 AM EST documented as of this encounter Care Teams Community Liaison Relationship Specialty Start Date End Date Cesar Hunt MD [address] [place] [address], [facility] [address] [place] [address] [email or web address] PCP - General Pediatrics 08/15/17 12/01/17 Effie Sam MD [address] [place] [address] PCP - General Pediatrics 12/02/17 02/28/21 Asia Goodman NP [address] [place] [id number] PCP - General Family Medicine 03/01/21 08/12/24 Pcp, Unknown PCP - General 08/13/24 documented as of this encounter Additional Source Comments The information contained in this document represents components of the legal health record. It is not the complete legal health record.[facility]
--- OUTSIDE RECORDS SUMMARY | 2025-05-04 02:26 | XMS_ITS | Encounter Summary ---
Author Organization [facility] Address [address] [place] [address] Phone Care Team Providers Care Barrel Brander Name Role Phone Pcp, Unknown Primary Care Provider Unavailabl e Encounter Details Date Type Department Care Team ([facility] st Contact Info) Description 12/13/2024 Procedure Pass [place] Admitting Dept - Virtual Department [address] [place] [address] Social History Tobacco Use Types Packs/Day Years Used Date Smoking Tobacco: Former Cigarettes 1 2 Smokeless Tobacco: Never Comments:Quit 2022 Alcohol Use Standard Drinks/Week Comments [...] your housing situation today? I have pawan sing 12/13/2024 How many times have you move [...] Industry Job Start Date Job End Date Sincerely Not on file Not on file Not on file documented as of this encounter Functional Status * Calculated C-SSRS Risk Score (Lifetime/Recent) Answer Date of Assessment Author No Risk Indicated 12/13/2024 12:03 AM EDT Yvon Alejnadra RN * [place] Suicide Severity Rating Scale (Screener/Recent Self-Report) Question Answer Date of Assessment Author 1. Wish to be (Past 1 Month) No 025 12:03 AM EDT Yvon Alejandra, KRISTAL 2. Non-Specific Active Suici ally Thoughts (Past 1 Month) No 12/13/2024 12:03 AM EDT Yvon Alejandra , RN 6. Suicidal Behavior (Lifetime) No 12:03 AM EDT Yvon Alejandra, RN documented as of this encounter Plan of Treatment Not on file documented as of this encounter Visit Diagnoses Not on filedocumented in this encounter Care Teams Barrel Brander Relationship Specialty Start Date End Date Pcp, Unknown PCP - General 08/13/24 documented as of this encounter Additional Source Comments The information contained in this document represents components of the legal health record. It is not the complete legal health record.[facility]
--- NOTE | 2025-05-04 03:15 | PC.NURSE ---
pt refused tdap.
--- NOTE | 2025-05-04 03:18 | ED.WOUNDLAC ---
HPI - Wound/Laceration General Chief Complaint: Wound/Laceration Stated Complaint: left hand slammed in the door Time Seen by Provider: 05/04/25 02:45 Source: patient and family Mode of arrival: ambulatory Limitations: no limitations History of Present Illness ED Provider: Dr. Lisbeth Mittal HPI narrative: Patient comes to the emergency room complaining of a crush injury to the fingers of the left hand. Patient accidentally slammed the car door in her fingers. Patient has an ill that nearly avulsed and small lacerations on the palmar aspect of the other fingers. Patient states that she is not sure if she is up-to-date with her Tdap. However, this time, patient prefers do not get immunized. She will check with her primary care physician. Related Data Allergies Allergy/AdvReac Type Severity Reaction Status Date / Time sulfamethoxazole (From Allergy Hives Verified 05/04/25 01:14 Bactrim) trimethoprim (From Bactrim) Allergy Hives Verified 05/04/25 01:14 Review of Systems Review of Systems: Constitutional : No Weight loss, No Fever, No Chills, No Night Sweats, No Fatigue, No Malaise ENT/Mouth : No Hearing loss, No Ear Pain, No Nasal Congestion, No Sinus Pain, No Hoarseness, No sore throat, No Rhinorrhea, No Swallowing Difficulty Eyes: No Eye Pain, No Swelling, No Redness, No Foreign Body, No Discharge, No Vision Changes Cardiovascular : No Chest Pain, No SOB, No Dyspnea on Exertion, No Orthopnea, No Edema, No Palpitations Respiratory : No Cough, No Sputum, No Wheezing, No Smoke Exposure, No Dyspnea Gastrointestinal : No Nausea, No Vomiting, No Diarrhea, No Constipation, No abdominal Pain, No Hematochezia, No Melena Genitourinary : no irregular bleeding, No Dysuria, No Urinary Frequency, No Hematuria, No Urinary Incontinence, No Urgency, No Flank Pain, No Urinary Flow Changes, No Hesitancy Musculoskeletal : No joint pain, No Myalgias, No Joint Swelling Skin : No Skin Lesions, No rash, complaining of smaller lacerations to the palmar aspect of the fingers on the left hand in a nearly avulsed fingernail Neuro : No Weakness, No Numbness, No Paresthesias, No Loss of Consciousness, No Dizziness, No Headache Psych : No Anxiety/Panic, No Depression, No SI/HI/AH/VH, No Social Issues, Heme/Lymph: No Bruising, No Bleeding,No Lymphadenopathy Endocrine : No Polyuria, No Polydipsia, No Temperature Intolerance [facility] Social History Social History Advance Directives: No Advance Directives Information Provided: Yes Physical Exam Exam: Exam: Appearance: Alert. Oriented X3. No acute distress. Eyes: Pupils equal, round and reactive to light. ENT: Pharynx normal. Neck: Normal inspection. Neck supple. No lymph nodes noted. No crepitus CVS: Normal heart rate and rhythm. Pulses normal. Normal S1 and S2 Respiratory: No respiratory distress. Breath sounds normal. No Wheezing. No rales Abdomen: Soft and nontender. No rigidity. No distention. Skin: Skin warm and dry. Normal skin color. Normal skin turgor. Patient has 2 superficial lacerations on the 2nd and 3rd digits of the left hand palmar aspect, the 4th nail is partially avulsed. Extremities: No lower extremity edema. No Lacerations. No Rash Neuro: Oriented X 3. No motor deficit. No sensory deficit. Moving all extremities. No slurred speech. CN 2 through 12 grossly intact Psych: calm, cooperative, normal affect Vital Signs: Vital Signs: Last Vital Signs Temp 98.1 F 05/04/25 01:12 Pulse 120 H 05/04/25 01:12 Resp 20 05/04/25 01:12 BP 134/87 05/04/25 01:12 Pulse Ox 97 05/04/25 01:12 O2 Del Method Room Air 05/04/25 01:12 BMI result Body Mass Index 33.3 Medications Administered Discontinued Medications Generic Name Dose Route Start Last Admin Trade Name Freq PRN Reason Stop Dose Admin Diphtheria/Tetanus/Acell Pertussis 0.5 ml 05/04/25 01:19 05/04/25 03:14 Diphth,Pertus(Acell),Tet Adult 0.5 Ml Syringe IM 05/04/25 01:20 Not Given .ONCE ONE Medical Decision Making Medical Decision Making MDM Narrative: X-rays did not show any acute bony abnormality. Patient's hand was soaked in normal saline with Betadine solution. The laceration is in the palmar aspect of the fingers do not need any stitching. The nail on the 4th finger we will follow by itself. Patient declined Tdap Independent Interpretation I performed an independent interpretation of an: Plain X-Ray Radiology Impression Discussion of test interpretation with radiology: I have reviewed the radiologist's reading. Radiologist Impression: No fractures or dislocations. No arthritic changes. No erosions. No radiopaque foreign body. IMPRESSION: 1. 4th finger nail is partially absent. 2. Generalized soft tissue swelling. Otherwise no acute findings. Discharge Plan Discharge Clinical Impression: Crush injury to finger Patient Disposition: Home, Self-Care Instructions: Crush Injury (ED) Additional Instructions: Please follow-up with your primary care physician tomorrow. If you have any worsening or new symptoms, please return to the emergency room or call 911 Print Language: Romansh
[2025-05-04 04:17] VITALS: BP 134/87; PULSE 120; RESP 20; TEMP 36.7; O2SAT 97
== END 2025-05-04 04:17 | disposition home or self-care (01) ==
PROVIDERS: Emergency Provider Emergency Medicine
DX: S67.195A Crushing injury of left ring finger, initial encounter (principal); R60.0 Localized edema; X58.XXXA Exposure to other specified factors, initial encounter; Y93.9 Activity, unspecified; Y92.9 Unspecified place or not applicable
CPT/HCPCS: 73130; 99283

== ENCOUNTER → 2025-05-04 01:42 | Outpatient (BNV) | payer BC, SELFPAY | PROVIDERS: Emergency Provider Emergency Medicine; Visit Provider Radiology Diagnostic Radiology | DX: M79.89 Other specified soft tissue disorders (principal) | CPT/HCPCS: 73130 ==